=== PATIENT | male | born 1980 | race Caucasian/White ===

== ENCOUNTER 2018-04-20 18:54 | Emergency (ER) | payer OTHER ==
[~2018-04-20] VITALS: Ht 180.3 cm; Wt 77.3 kg
[2018-04-20 19:04] VITALS: Ht 180.3 cm; Wt 77.3 kg
[2018-04-20] MEDS ORDERED: BENZTROPINE MESY1 MG PO (19:05)
[2018-04-20] MEDS ORDERED: PROZAC SOL20 MG/5 M1 PT (19:06)
[2018-04-20] MEDS ORDERED: VISTARIL25 MG PO (19:06)
[2018-04-20] MEDS ORDERED: BUPROPION XL300 MG PO (19:06)
[2018-04-20] MEDS ORDERED: ZYPREXA15 MG PO (19:07)
[2018-04-20] MEDS ORDERED: ZANTAC150 MG PO (19:07)
[2018-04-20 20:11] LABS: BASOPHILS 0.1 % (0-2); EOSINOPHILS 0.5 % (0-7); HEMATOCRIT 45.2 % (42.0-54.0); HEMOGLOBIN 15.8 g/dL (13.5-17.5); IMMATURE GRANULOCYTES 0.3 % (0-5); LYMPHOCYTES 17.9 % (15-50); MCH 31.1 pg (26.0-34.0); MEAN PLATELET VOLUME 10.1 fL (7.4-10.4); MONOCYTES 6.9 % (2-11); NEUTROPHILS 74.3 % (40-80); PLATELET COUNT 197 10x3/uL (130-400); RBC 5.08 10x6/uL (4.20-6.10); RDW 12.6 % (11.5-14.5)
[2018-04-20 20:37] LABS: ALBUMIN 4.1 g/dL (3.4-5.0); ALKALINE PHOSPHATASE 73 U/L (46-116); ALT (SGPT) 27 U/L (10-68); BILIRUBIN - TOTAL 0.34 mg/dL (0.2-1.3); CALC OSMOLALITY 282 mosm/kg (275-300); CALCIUM 8.3 mg/dL (8.5-10.1); CARBON DIOXIDE 28.9 mmol/L (21.0-32.0); CHLORIDE - SERUM 103 mmol/L (98-107); CREATININE - SERUM 1.6 mg/dL (0.6-1.3); GLUCOSE 109 mg/dL (74-106); POTASSIUM - SERUM 3.6 mmol/L (3.5-5.1); PROTEIN - SERUM 7.9 g/dL (6.4-8.2); SODIUM 140 mmol/L (136-145); UREA NITROGEN 22 mg/dL (7-18); eGFR NON AFRICAN AMERICAN 52 mL/min (90-120)
[2018-04-20 20:48] LABS: CKMB 0.7 U/L (0.0-3.6); CREATINE KINASE 87 UL (21-232)
[2018-04-20 22:13] LABS: APPEARANCE CLEAR (CLEAR); BILIRUBIN NEGATIVE (NEGATIVE); COLOR YELLOW (YELLOW); GLUCOSE NEGATIVE (NEGATIVE); KETONE NEGATIVE (NEGATIVE); NITRITE NEGATIVE (NEGATIVE); PROTEIN NEGATIVE (NEGATIVE); SPECIFIC GRAVITY 1.015 (1.005-1.020); UROBILINOGEN NORMAL (NORMAL)
[2018-04-20 22:18] LABS: INR 1.08 (0.85-1.17); PROTIME 13.6 SECONDS (11.6-15.0)
[2018-04-20 22:20] LABS: D-DIMER-QUANTITATIVE 0.33 ug/mLFEU (0.20-0.54)
[2018-04-20 22:23] LABS: UDS - AMPHET NEGATIVE QUAL (NEGATIVE); UDS - BARB NEGATIVE QUAL (NEGATIVE); UDS - BENZO NEGATIVE QUAL (NEGATIVE); UDS - COCAINE NEGATIVE QUAL (NEGATIVE); UDS - OPIATE NEGATIVE QUAL (NEGATIVE); UDS - PCP NEGATIVE QUAL (NEGATIVE); UDS - THC NEGATIVE QUAL (NEGATIVE)
[2018-04-20 22:35] LABS: THYROID STIMULATING HORMONE 1.08 uIU/mL (0.36-3.74)
[2018-04-20 22:37] LABS: TROPONIN-I < 0.017 ng/mL (0.000-0.060)
[2018-04-21 06:07] VITALS: BP 138/87
[2018-04-21] MEDS ORDERED: DILANTIN100 MG PO (13:33)
== END 2018-04-21 06:08 | disposition home or self-care (01) ==
LOC: D.ER 18:54
PROVIDERS: Family Medicine
DX: E86.0 Dehydration (principal); R74.0 Nonspecific elevation of levels of transaminase and lactic acid dehydrogenase [LDH]; R55 Syncope and collapse; Z86.59 Personal history of other mental and behavioral disorders; W19.XXXA Unspecified fall, initial encounter; Y93.89 Activity, other specified; Y92.89 Other specified places as the place of occurrence of the external cause

== ENCOUNTER 2018-04-21 10:16 | Emergency (ER) | payer OTHER ==
[~2018-04-21] VITALS: Ht 180.3 cm; Wt 77.3 kg
[~2018-04-21 10:16] MED LIST: BENZTROPINE MESY1 MG PO; BUPROPION XL300 MG PO; PROZAC SOL20 MG/5 M1 PT; VISTARIL25 MG PO; ZANTAC150 MG PO; ZYPREXA15 MG PO
[2018-04-21 10:17] VITALS: Ht 180.3 cm; Wt 77.3 kg
[2018-04-21 10:47] LABS: BASOPHILS 0.1 % (0-2); EOSINOPHILS 0.4 % (0-7); HEMATOCRIT 40.7 % (42.0-54.0); HEMOGLOBIN 14.5 g/dL (13.5-17.5); IMMATURE GRANULOCYTES 0.3 % (0-5); LYMPHOCYTES 12.1 % (15-50); MCH 31.3 pg (26.0-34.0); MCHC 35.6 g/dL (31.0-37.0); MCV 87.9 fL (80.0-100.0); MEAN PLATELET VOLUME 9.9 fL (7.4-10.4); NEUTROPHILS 79.1 % (40-80); PLATELET COUNT 171 10x3/uL (130-400); RBC 4.63 10x6/uL (4.20-6.10); RDW 12.5 % (11.5-14.5); WBC 10.5 10x3/uL (4.8-10.8)
[2018-04-21 11:05] LABS: APPEARANCE CLEAR (CLEAR); BILIRUBIN NEGATIVE (NEGATIVE); COLOR STRAW (YELLOW); GLUCOSE NEGATIVE (NEGATIVE); KETONE NEGATIVE (NEGATIVE); NITRITE NEGATIVE (NEGATIVE); PROTEIN NEGATIVE (NEGATIVE); SPECIFIC GRAVITY 1.015 (1.005-1.020); UROBILINOGEN NORMAL (NORMAL)
[2018-04-21 11:06] LABS: ALBUMIN 3.8 g/dL (3.4-5.0); ANION GAP 13.9 mmol/L (8-16); CALCIUM 8.4 mg/dL (8.5-10.1); CARBON DIOXIDE 25.3 mmol/L (21.0-32.0); CREATININE - SERUM 1.2 mg/dL (0.6-1.3)
[2018-04-21 11:09] LABS: POTASSIUM - SERUM 4.2 mmol/L (3.5-5.1)
[2018-04-21 11:25] LABS: BILIRUBIN - TOTAL 0.45 mg/dL (0.2-1.3)
[2018-04-21 12:22] LABS: UDS - AMPHET NEGATIVE QUAL (NEGATIVE); UDS - BARB NEGATIVE QUAL (NEGATIVE); UDS - BENZO NEGATIVE QUAL (NEGATIVE); UDS - COCAINE NEGATIVE QUAL (NEGATIVE); UDS - OPIATE NEGATIVE QUAL (NEGATIVE); UDS - PCP NEGATIVE QUAL (NEGATIVE); UDS - THC NEGATIVE QUAL (NEGATIVE)
[2018-04-21] MEDS ORDERED: DILANTIN100 MG PO (13:33)
[2018-04-21 14:42] VITALS: BP 140/88
== END 2018-04-21 14:40 | disposition home or self-care (01) ==
LOC: D.ER 10:16
PROVIDERS: Emergency Medicine
DX: G40.909 Epilepsy, unspecified, not intractable, without status epilepticus (principal); Z91.14 Patient's other noncompliance with medication regimen; K21.9 Gastro-esophageal reflux disease without esophagitis; F17.200 Nicotine dependence, unspecified, uncomplicated

== ENCOUNTER 2018-04-21 15:45 | Emergency (ER) | payer OTHER ==
[~2018-04-21] VITALS: Ht 180.3 cm; Wt 77.3 kg
[~2018-04-21 15:45] MED LIST changes: +DILANTIN100 MG PO
[2018-04-21 16:09] VITALS: Ht 180.3 cm; Wt 77.3 kg
[2018-04-21 18:26] VITALS: BP 140/80
== END 2018-04-21 18:29 | disposition home or self-care (01) ==
LOC: D.ER 15:45
DX: G40.909 Epilepsy, unspecified, not intractable, without status epilepticus (principal); Z91.14 Patient's other noncompliance with medication regimen; K21.9 Gastro-esophageal reflux disease without esophagitis; F17.200 Nicotine dependence, unspecified, uncomplicated